=== PATIENT | male | born 1980 | race Two or more races ===

== ENCOUNTER 2017-03-08 05:33 | Day surgery (SDC) | payer OTHER ==
[2017-03-08] MEDS ORDERED: Midazolam 1 MG/ML 2 ML SDV IV ONE ×3 (05:34→06:30)
[2017-03-08] MEDS ORDERED: fentaNYL 100 MCG/2 ML SDV IV ONE ×3 (05:34→06:28)
[2017-03-08] MEDS ORDERED: Midazolam 1 MG/ML 2 ML SDV ONE (06:14)
[2017-03-08] MEDS ORDERED: fentaNYL 100 MCG/2 ML SDV ONE (06:15)
[2017-03-08] MEDS ORDERED: Sodium Chloride 0.9% 10 ML Syringe FLUSH PRN ×2 (06:17→07:51)
[2017-03-08] MEDS ORDERED: Dextrose 5%-0.45% NaCl 1,000 ML IV SCH ×2 (06:30→08:00)
--- NOTE | 2017-03-08 07:05 | OR ---
DATE: 03/08/2017 PROCEDURES: Esophagogastroduodenoscopy and multiple pinch biopsies. INSTRUMENT USED: GIF-H180 Olympus video panendoscope. PREMEDICATIONS: No oral topical anesthesia used. Fentanyl 100 mcg intravenous, Versed 2 mg intravenous. The procedure was done under pulse oximetry, BP recording, and brickmason supervisor. INDICATION: The patient with longstanding heartburn, dyspepsia, as well as upper abdominal pain unexplained and not responsive to medical measures, on long- term high-dose PPI. Esophagogastroduodenoscopy is performed for detection of any active erosive lesions, Wing esophagus and/or malignancy also under consideration, H. pylori status to be determined, small bowel biopsies to be obtained for celiac disease if indicated, endoscopic hemostasis therapy if needed. DESCRIPTION OF PROCEDURE: The scope was passed with ease. Adequate visualization of the esophagus was made from proximal to distal areas. No upper esophageal lesions identified. No distal esophageal stricture. No uphill or downhill esophageal varices. No Kristen-Trotter tear. No evidence of erosive esophagitis by [place] criteria. No esophageal polyp or tumor mass identified. Z-line was seen at around 40 cm distal to oral verge, configuration consistent with grade I by ZAP classification. No proximal gastric varices noted. Gastric fundus examination by retroflexion showed no polypoid lesions. No gastric ulcer, malignant mass, or vascular ectasia identified. Duodenal bulb showed no ulcer. Visualized second part of the duodenum was unremarkable. Multiple pinch biopsies 4 in number were taken from different areas of the 2nd part of the duodenum and tissues were also obtained from the duodenal bulb at 9 and 12 o'clock positions and sent for any histopathologic evidence of celiac disease. Multiple pinch biopsies were taken from the gastric antrum and proximal body and sent for PyloriTek test for H. pylori and histopathology. No bleeding was noted from any of the visualized areas at the completion of examination. Photographs were taken of the duodenal bulb, gastric antrum, fundus, and distal esophagus. IMPRESSION: Normal study. The patient tolerated the procedure well. [facility] /[id number]
[2017-03-08 10:37] VITALS: BP 120/70
== END 2017-03-08 06:45 | disposition home or self-care (01) ==
LOC: DL.ENDO 05:33
PROVIDERS: ATTEND Internal Medicine Gastroenterology
DX: R12 Heartburn (principal); B96.81 Helicobacter pylori [H. pylori] as the cause of diseases classified elsewhere; R10.10 Upper abdominal pain, unspecified; F17.210 Nicotine dependence, cigarettes, uncomplicated; F41.1 Generalized anxiety disorder; F32.9 Major depressive disorder, single episode, unspecified; M54.5 Low back pain; Z87.19 Personal history of other diseases of the digestive system; Z88.8 Allergy status to other drugs, medicaments and biological substances; Z98.890 Other specified postprocedural states
CPT/HCPCS: 43239; 87077; J2250; J3010; J7042; 88305; 88342

== ENCOUNTER 2017-05-28 06:29 | Day surgery (SDC) | payer OTHER ==
[~2017-05-28 06:29] MED LIST: Dextrose 5%-0.45% NaCl 1,000 ML IV SCH; Midazolam 1 MG/ML 2 ML SDV ONE; Sodium Chloride 0.9% 10 ML Syringe FLUSH PRN; fentaNYL 100 MCG/2 ML SDV ONE
[2017-05-28] MEDS ORDERED: fentaNYL 100 MCG/2 ML SDV IV ONE ×3 (06:30→07:39)
[2017-05-28] MEDS ORDERED: Midazolam 1 MG/ML 2 ML SDV IV ONE ×7 (06:30→07:36)
--- NOTE | 2017-05-28 08:45 | OR ---
DATE: 05/28/2017 PROCEDURE: Total colonoscopy, terminal ileoscopy, NBI, and multiple pinch biopsies. INSTRUMENT USED: CF-H180AL Olympus videocolonoscope. PREMEDICATIONS: Fentanyl 125 mcg intravenous, Versed 4 mg intravenous. Nasal O2 cannula. The procedure was done under pulse oximetry, BP recording, and database software technician. INDICATION: The patient with intermittent rectal bleeding chronic diarrhea unexplained and not responsive to medical measures. Colonoscopic examination is done for detection of any polypoid lesions and removal, endoscopic hemostasis therapy if needed. Biopsies to be obtained for any evidence of microscopic colitis. DESCRIPTION OF PROCEDURE: Initial rectal exam was unremarkable. Rigid anoscopy showed small internal hemorrhoids without bleeding from them. The colonoscope was passed with ease up to and beyond the ileocecal junction to visualize normal- appearing terminal ileum, NBI views were taken. Photographs were obtained, multiple pinch biopsies were obtained and sent for histopathology. No bleeding was noted from any of the visualized areas at the commencement examination. No stricture. No vascular ectasia. No large isolated ulcerations seen. No evidence of diffuse inflammatory bowel disease in the form of friability, contact bleeding, or ulcerations. No polyp or tumor mass is identified. Probing the proximal sides of folds and flexures, using adequate distention and clearing up the stool material, withdrawal of the scope was made. Multiple pinch biopsies were taken from the normal-appearing mucosa, mid transverse colon, mid descending colon, and rectosigmoid, and sent for any histopathologic evidence of microscopic colitis. No bleeding was noted from any of the visualized areas at the completion of examination. IMPRESSION: Internal hemorrhoids. The patient tolerated the procedure well. [facility] /[id number]
[2017-05-28 09:43] VITALS: BP 123/64
== END 2017-05-28 09:47 | disposition home or self-care (01) ==
LOC: DL.ENDO 06:29
PROVIDERS: ATTEND Internal Medicine Gastroenterology
DX: K52.9 Noninfective gastroenteritis and colitis, unspecified (principal); K21.9 Gastro-esophageal reflux disease without esophagitis; E66.09 Other obesity due to excess calories; K64.8 Other hemorrhoids; K62.5 Hemorrhage of anus and rectum
CPT/HCPCS: 45380; J2250; J3010; J7042; 88305

== ENCOUNTER 2017-07-22 12:35 | Emergency (ER) | payer OTHER ==
[2017-07-22 12:44] VITALS: BP 146/92
--- NOTE | 2017-07-22 13:17 | EDM.PDOC ---
ED HPI GENERAL MEDICAL PROBLEM - General Chief Complaint: Upper Extremity Injury/Pain Stated Complaint: DISLOCATED THUMB [phone] Time Seen by Provider: 07/22/17 13:00 Source of Information: Reports: Patient, RN, RN Notes Reviewed History Limitations: Reports: No Limitations - History of Present Illness INITIAL COMMENTS - FREE TEXT/NARRATIVE: Pt presents to the ER with c/o pain and possible dislocation of the right thumb. He states he fell last night and tried to catch himself. Patient denies any pain anywhere else or any further problems. Onset: Sudden Onset Date: 07/21/17 Location: Reports: Upper Extremity, Right Quality: Reports: Throbbing Severity: Moderate Improves with: Reports: None Worsens with: Reports: None Associated Symptoms: Reports: No Other Symptoms Treatments RECORD SEARCHER: Reports: Cold Therapy Right 1-Thumb Pain Score (Numeric/FACES): 7 - Related Data Allergies Allergy/AdvReac Type Severity Reaction Status Date / Time gabapentin Allergy Rash Verified 07/22/17 12:48 Home Meds: Home Meds Ibuprofen 3 tab PO Q6H 03/07/17 [History] Pantoprazole Sodium [Protonix] 1 tab PO DAILY 03/07/17 [History] Past Medical History HEENT History: Reports: None Cardiovascular History: Reports: None Respiratory History: Reports: None Gastrointestinal History: Reports: GERD Genitourinary History: Reports: None Musculoskeletal History: Reports: Back Pain, Chronic Neurological History: Reports: None Psychiatric History: Reports: Anxiety, Depression, PTSD, Other (See Below) Other Psychiatric History: TOBACCO AND S/P SUBSTANCE ABUSE Endocrine/Metabolic History: Reports: None Hematologic History: Reports: None Immunologic History: Reports: None Oncologic (Cancer) History: Reports: None Dermatologic History: Reports: None - Infectious Disease History Infectious Disease History: Reports: None - Past Surgical History Head Surgeries/Procedures: Reports: None HEENT Surgical History: Reports: None Cardiovascular Surgical History: Reports: None Respiratory Surgical History: Reports: None GI Surgical History: Reports: EGD Male Surgical History: Reports: None Endocrine Surgical History: Reports: None Neurological Surgical History: Reports: None Musculoskeletal Surgical History: Reports: None Oncologic Surgical History: Reports: None Dermatological Surgical History: Reports: None Social & Family History - Family History Family Medical History: Noncontributory - Tobacco Use Smoking Status *Q: Current Some Day Smoker Years of Tobacco use: 1 Packs/Tins Daily: 0.1 Second Hand Smoke Exposure: No - Caffeine Use Caffeine Use: Reports: Coffee, Tea Caffeine Use Comment: 20oz daily - Alcohol Use Number of Drinks Per Day: 1 - Recreational Drug Use Recreational Drug Use: No Drug Use in Last 12 Months: No Review of Systems - Review of Systems Review Of Systems: ROS reveals no pertinent complaints other than HPI. ED EXAM, GENERAL - Physical Exam Exam: See Below Exam Limited By: No Limitations General Appearance: Alert, WD/WN, No Apparent Distress Eye Exam: Bilateral Eye: EOMI, Normal Inspection, PERRL Ears: Normal External Exam, Normal Canal, Hearing Grossly Normal Nose: Normal Inspection, Normal Mucosa, No Blood Throat/Mouth: Normal Inspection, Normal Lips, Normal Teeth, Normal Gums, Normal Oropharynx, Normal Voice, No Airway Compromise Head: Atraumatic, Normocephalic Neck: Normal Inspection, Supple, Non-Tender, Full Range of Motion Respiratory/Chest: No Respiratory Distress, Lungs Clear, Normal Breath Sounds, No Accessory Muscle Use, Chest Non-Tender Cardiovascular: Normal Peripheral Pulses, Regular Rate, Rhythm, No Edema, No Gallop, No JVD, No Murmur, No Rub Peripheral Pulses: 2+: Radial (L), Radial (R) GI/Abdominal: Normal Bowel Sounds, Soft, Non-Tender, No Organomegaly, No Distention, No Abnormal Bruit, No Mass (Male) Exam: Deferred Rectal (Males) Exam: Deferred Back Exam: Normal Inspection, Full Range of Motion, NT Extremities: No Pedal Edema, Normal Capillary Refill, Joint Swelling (right thumb), Limited Range of Motion (right thumb) Neurological: Alert, Oriented, CN II-XII Intact, Normal Cognition, Normal Gait, Normal Reflexes, No Motor/Sensory Deficits Psychiatric: Normal Affect, Normal Mood Skin Exam: Warm, Dry, Intact, Normal Color, No Rash Lymphatic: No Adenopathy Course - Vital Signs Last Recorded V/S: Last Vital Signs Temp 98.3 F 07/22/17 12:40 Pulse 98 07/22/17 12:40 Resp 16 07/22/17 12:40 BP 146/92 H 07/22/17 12:43 Pulse Ox 98 07/22/17 12:40 - Orders/Labs/Meds Orders: Active Orders 24 hr Category Date Time Status Hand Comp Min 3V Rt [CR] Urgent Exams 07/22/17 14:19 Ordered Meds: Medications Discontinued Medications Generic Name Dose Route Start Last Admin Trade Name Alistair PRN Reason Stop Dose Admin Lidocaine HCl 30 ml 07/22/17 13:25 07/22/17 13:53 Xylocaine-Mpf 1% INJECT 07/22/17 13:26 30 ml ONETIME ONE Administration - Radiology Interpretation Free Text/Narrative:: Right hand: Dislocation of first phalange. Post reduction right hand: See rad report Departure - Departure Time of Disposition: 14:45 Disposition: Home, Self-Care 01 Clinical Impression: Dislocation of right thumb Qualifiers: Encounter type: initial encounter Qualified Code(s): S63.104A - Unspecified dislocation of right thumb, initial encounter - Discharge Information Instructions: Cast or Splint Care, [id number], Finger or Thumb Dislocation, [id number] Forms: ED Department Discharge Additional Instructions: May ice the area as tolerated. Keep splinted for 7-10 days. Follow up with your primary care facility in 7-10 days. - My Orders Last 24 Hours: My Active Orders 07/22/17 14:19 Hand Comp Min 3V Rt [CR] Urgent - Assessment/Plan Last 24 Hours: My Active Orders 07/22/17 14:19 Hand Comp Min 3V Rt [CR] Urgent
[2017-07-22] MEDS ORDERED: Lidocaine 1% 30 ML SDV INJECT ONE (13:25)
--- NOTE | 2017-07-22 13:51 | CR ---
Clinical history: 36-year-old male injury right hand. Interpretation: Abnormal. Complete dislocation first metacarpal phalangeal joint base of the right thumb. Disruption/displacement of the sesamoids but no associated fracture right hand or wrist. No foreign bodies.
--- NOTE | 2017-07-22 14:36 | CR ---
Clinical history: 36-year-old male traumatic dislocation first MCP joint. Interpretation: Satisfactory reduction (emergency department) first MCP joint dislocation. Soft tissue swelling but no sign of post reduction fracture right thumb or first metacarpal. Sesamoid s unremarkable.
== END 2017-07-22 14:55 | disposition home or self-care (01) ==
LOC: DL.ED 12:35
DX: S63.114A Dislocation of metacarpophalangeal joint of right thumb, initial encounter (principal); F17.210 Nicotine dependence, cigarettes, uncomplicated; Z88.8 Allergy status to other drugs, medicaments and biological substances; Z79.899 Other long term (current) drug therapy; W19.XXXA Unspecified fall, initial encounter
CPT/HCPCS: 73130-RT; 99282; 99283

== ENCOUNTER 2019-03-17 23:04 | Emergency (ER) | payer OTHER ==
[2019-03-17 23:20] VITALS: BP 146/87; PULSE 89
[2019-03-17 23:35] LABS: ANION GAP 13.3; CHLORIDE,CL 99 mmol/L (101-111); SODIUM,NA 140 mmol/L (135-145)
--- NOTE | 2019-03-17 23:38 | EDM.PDOC ---
ED HPI GENERAL MEDICAL PROBLEM - General Chief Complaint: General Stated Complaint: DIZZY THE LAST FEW DAYS, CHEST PAIN Time Seen by Provider: 03/17/19 23:29 Source of Information: Reports: Patient History Limitations: Reports: No Limitations - History of Present Illness INITIAL COMMENTS - FREE TEXT/NARRATIVE: This 38 yo male patient reports to the ED with intermittent dizziness over the past 2 days with some chest pain. The patient reports he has noticed increased dizziness with quick movements of his head. The patient reports he has also noticed increased anxiety, but has an appointment next week to be evaluated for anxiety. The patient reports he had some right ear pain about 2 weeks ago, but that has resolved by the time of the visit. The patient reports he had a similar episode "years" ago and was advised that he had vertigo. The patient reports he has been drinking energy drinks and has had increased caffeine use. The patient reports some palpitations about 2200 tonight, but currently does not have any cardiac symptoms. Duration: Day(s):, Intermittent Location: Reports: Head, Chest, Generalized Quality: Reports: Other Severity: Moderate Improves with: Reports: Rest Worsens with: Reports: Movement Context: Reports: Other Associated Symptoms: Reports: No Other Symptoms - Related Data Allergies Allergy/AdvReac Type Severity Reaction Status Date / Time gabapentin Allergy Rash Verified 07/22/17 12:48 Home Meds: Home Meds Ibuprofen 3 tab PO Q6H 03/07/17 [History] Pantoprazole Sodium [Protonix] 1 tab PO DAILY 03/07/17 [History] Past Medical History HEENT History: Reports: None Cardiovascular History: Reports: None Respiratory History: Reports: None Gastrointestinal History: Reports: GERD Genitourinary History: Reports: None Musculoskeletal History: Reports: Back Pain, Chronic Neurological History: Reports: None Psychiatric History: Reports: Anxiety, Depression, PTSD, Other (See Below) Other Psychiatric History: TOBACCO AND S/P SUBSTANCE ABUSE Endocrine/Metabolic History: Reports: None Hematologic History: Reports: None Immunologic History: Reports: None Oncologic (Cancer) History: Reports: None Dermatologic History: Reports: None - Infectious Disease History Infectious Disease History: Reports: None - Past Surgical History Head Surgeries/Procedures: Reports: None HEENT Surgical History: Reports: None Cardiovascular Surgical History: Reports: None Respiratory Surgical History: Reports: None GI Surgical History: Reports: EGD Male Surgical History: Reports: None Endocrine Surgical History: Reports: None Neurological Surgical History: Reports: None Musculoskeletal Surgical History: Reports: None Oncologic Surgical History: Reports: None Dermatological Surgical History: Reports: None Social & Family History - Family History Family Medical History: Noncontributory - Caffeine Use Caffeine Use: Reports: Coffee, Tea Caffeine Use Comment: 20oz daily ED ROS GENERAL - Review of Systems Review Of Systems: ROS reveals no pertinent complaints other than HPI. ED EXAM, GENERAL - Physical Exam Exam: See Below Exam Limited By: No Limitations General Appearance: Alert, WD/WN, Anxious, Mild Distress Eye Exam: Bilateral Eye: EOMI, Normal Inspection, PERRL Ears: Normal External Exam, Normal Canal, Hearing Grossly Normal, Normal TMs, Other (increased dizziness with rapid head movement (Vertigo)) Nose: Normal Inspection, Normal Mucosa, No Blood Throat/Mouth: Normal Inspection, Normal Lips, Normal Teeth, Normal Gums, Normal Oropharynx, Normal Voice, No Airway Compromise Head: Atraumatic, Normocephalic Neck: Normal Inspection, Supple, Non-Tender, Full Range of Motion Respiratory/Chest: No Respiratory Distress, Lungs Clear, Normal Breath Sounds, No Accessory Muscle Use, Chest Non-Tender Cardiovascular: Normal Peripheral Pulses, Regular Rate, Rhythm, No Edema, No Gallop, No JVD, No Murmur, No Rub GI/Abdominal: Normal Bowel Sounds, Soft, Non-Tender, No Organomegaly, No Distention, No Abnormal Bruit, No Mass (Male) Exam: Deferred Rectal (Males) Exam: Deferred Back Exam: Normal Inspection, Full Range of Motion, NT Extremities: Normal Inspection, Normal Range of Motion, Non-Tender, Normal Capillary Refill, No Pedal Edema Neurological: Alert, Oriented, CN II-XII Intact, Normal Cognition, Normal Gait, Normal Reflexes, No Motor/Sensory Deficits Psychiatric: Normal Affect, Anxious Skin Exam: Warm, Dry, Intact, Normal Color, No Rash Lymphatic: No Adenopathy Course - Vital Signs Last Recorded V/S: Last Vital Signs Temp 37.0 C 03/17/19 23:15 Pulse 89 03/17/19 23:15 Resp 18 03/17/19 23:15 BP 146/87 H 03/17/19 23:15 Pulse Ox 98 03/17/19 23:15 - Orders/Labs/Meds Orders: Active Orders 24 hr Category Date Time Status EKG Documentation Completion [RC] URGENT Care 03/17/19 23:05 Active DRUG SCREEN URINE BIORAD [URCHEM] Stat Lab 03/17/19 23:05 Ordered UA RFX KERRI AND CULT IF INDIC [URIN] Urgent Lab 03/17/19 23:05 Ordered Labs: Laboratory Tests 03/17/19 03/17/19 Range/Units 23:10 23:10 WBC 8.3 (5.0-10.0) 10^3/uL RBC 4.90 (4.6-6.2) 10^6/uL Hgb 14.8 (14.0-18.0) g/dL Hct 43.3 (40.0-54.0) % MCV 88.4 (80-100) fL MCH 30.2 (27.0-34.0) pg MCHC 34.2 (33.0-35.0) g/dL Plt Count 334 (150-450) 10^3/uL Neut % (Auto) 56.9 (42.2-75.2) % Lymph % (Auto) 35.7 (20.5-50.1) % [place] % (Auto) 5.0 (2-8) % Eos % (Auto) 1.9 (1.0-3.0) % Baso % (Auto) 0.5 (0.0-1.0) % Sodium 140 (135-145) mmol/L Potassium 3.3 L (3.6-5.0) mmol/L Chloride 99 L (101-111) mmol/L Carbon Dioxide 31.0 (21.0-31.0) mmol/L Anion Gap 13.3 BUN 14 (7-18) mg/dL Creatinine 0.9 (0.6-1.3) mg/dL Est Cr Clr Drug Dosing 130.66 mL/min Estimated GFR (MDRD) > 60 BUN/Creatinine Ratio 15.55 Glucose 107 H (74-105) mg/dL Calcium 9.3 (8.4-10.2) mg/dl Total Bilirubin 0.7 (0.2-1.0) mg/dL AST 34 (10-42) IU/L ALT 38 (10-60) IU/L Alkaline Phosphatase 80 (42-121) IU/L Troponin I < 0.02 (0.00-0.02) ng/ml Total Protein 7.9 (6.7-8.2) g/dl Albumin 4.7 (3.2-5.5) g/dl Globulin 3.2 Albumin/Globulin Ratio 1.47 Meds: Medications Discontinued Medications Generic Name Dose Route Start Last Admin Trade Name Alistair PRN Reason Stop Dose Admin Meclizine HCl 25 mg 03/18/19 00:20 Antivert PO 03/18/19 00:21 ONETIME ONE Departure - Departure Time of Disposition: 00:26 Disposition: Home, Self-Care 01 Condition: Fair Clinical Impression: Vertigo - Discharge Information *PRESCRIPTION DRUG MONITORING PROGRAM REVIEWED*: Not Applicable *COPY OF PRESCRIPTION DRUG MONITORING REPORT IN PATIENT LEONARD: Not Applicable Instructions: Vertigo, [id number] Forms: ED Department Discharge Care Plan Goals: The patient was advised of the examination, lab, EKG and x-ray results during the visit. The patient was given a dose of Meclizine (25 mg) while in the ED. The patient was discharged with a script for Meclizine (25 mg) #20 to take 1 by mouth 4 times per day as needed. If the patient has any additional symptoms or concerns, the patient should either return to the emergency department or visit his primary care facility. - My Orders Last 24 Hours: My Active Orders 03/17/19 23:05 EKG Documentation Completion [RC] URGENT DRUG SCREEN URINE BIORAD [URCHEM] Stat UA RFX KERRI AND CULT IF INDIC [URIN] Urgent - Assessment/Plan Last 24 Hours: My Active Orders 03/17/19 23:05 EKG Documentation Completion [RC] URGENT DRUG SCREEN URINE BIORAD [URCHEM] Stat UA RFX KERRI AND CULT IF INDIC [URIN] Urgent
[2019-03-18] MEDS ORDERED: Meclizine 12.5 MG Tab PO ONE (00:20)
== END 2019-03-18 00:43 | disposition home or self-care (01) ==
LOC: DL.ED 23:04
DX: R42 Dizziness and giddiness (principal); K21.9 Gastro-esophageal reflux disease without esophagitis; Z88.8 Allergy status to other drugs, medicaments and biological substances; Z79.899 Other long term (current) drug therapy
CPT/HCPCS: 36415; 71045; 80053; 84484; 85025; 93005; 99285; A9270

== ENCOUNTER 2022-04-08 15:20 | Emergency (ER) | payer OTHER ==
[2022-04-08 16:02] VITALS: BP 161/109; PULSE 95
[2022-04-08] MEDS ORDERED: Ketorolac 30 MG/ML SDV IVPUSH ONE (17:23)
[2022-04-08] MEDS ORDERED: Orphenadrine 60 MG/2 ML Inj IM ONE (17:24)
[2022-04-08] MEDS ORDERED: Ketorolac 30 MG/ML SDV IM ONE (17:37)
== END 2022-04-08 18:37 | disposition left against medical advice (07) ==
LOC: DL.ED 15:20
DX: Z53.21 Procedure and treatment not carried out due to patient leaving prior to being seen by health care provider (principal)
CPT/HCPCS: J1885; J2360

== ENCOUNTER 2022-07-04 20:27 | Emergency (ER) | payer OTHER ==
[2022-07-04] MEDS ORDERED: Ondansetron 4 MG Tab.DIS PO ONE (20:28)
[2022-07-04] MEDS ORDERED: Ondansetron 4 MG/2 ML SDV IVPUSH ONE (20:49)
[2022-07-04 21:13] VITALS: BP 187/113; PULSE 69
[2022-07-04 21:13] LABS: ANION GAP 17.2 mEq/L (7-13)
[2022-07-04 21:37] LABS: CORONAVIRUS COVID-19 NAA NEGATIVE (NEGATIVE)
[2022-07-04] MEDS ORDERED: Ketorolac 30 MG/ML SDV IVPUSH ONE (21:53)
[2022-07-04] MEDS ORDERED: cefTRIAXone 2 GM Vial IVPUSH ONE (22:27)
[2022-07-04] MEDS ORDERED: Ondansetron 4 MG Tab.DIS ONE (22:33)
== END 2022-07-04 22:45 | disposition home or self-care (01) ==
LOC: DL.ED 20:27
DX: S29.011A Strain of muscle and tendon of front wall of thorax, initial encounter (principal); K52.9 Noninfective gastroenteritis and colitis, unspecified; J40 Bronchitis, not specified as acute or chronic; K21.9 Gastro-esophageal reflux disease without esophagitis; F17.210 Nicotine dependence, cigarettes, uncomplicated; Z88.5 Allergy status to narcotic agent; Z79.899 Other long term (current) drug therapy; Z20.822 Contact with and (suspected) exposure to COVID-19
CPT/HCPCS: 0240U; 36415; 71046; 80053; 80307; 83605; 84484; 85025; 85379; 87040; 93005; 96374; 96375; 99285; A9270; J0696; J1885; J2405

== ENCOUNTER 2024-12-10 14:19 | Emergency (ER) | payer OTHER ==
[2024-12-10 14:54] VITALS: BP 145/91; PULSE 69
== END 2024-12-10 14:58 | disposition home or self-care (01) ==
LOC: DL.ED 14:19
DX: J01.11 Acute recurrent frontal sinusitis (principal); K21.9 Gastro-esophageal reflux disease without esophagitis; Z79.899 Other long term (current) drug therapy; Z88.8 Allergy status to other drugs, medicaments and biological substances
CPT/HCPCS: 99282

== ENCOUNTER 2025-04-02 14:03 | Emergency (ER) | payer OTHER ==
[2025-04-02] MEDS: cefTRIAXone 1 GM, Lidocaine 1% 2.1 ML IM ONE (14:35)
[2025-04-02 14:46] VITALS: BP 149/95; PULSE 66
== END 2025-04-02 14:45 | disposition home or self-care (01) ==
LOC: DL.ED 14:03
DX: H69.91 Unspecified Eustachian tube disorder, right ear (principal); J01.90 Acute sinusitis, unspecified; B96.89 Other specified bacterial agents as the cause of diseases classified elsewhere; K21.9 Gastro-esophageal reflux disease without esophagitis; Z88.8 Allergy status to other drugs, medicaments and biological substances; Z79.899 Other long term (current) drug therapy
CPT/HCPCS: 96372; 99282; A9270; J0696; J2003